=== PATIENT | male | born 1955 | race Caucasian/White ===

== ENCOUNTER → 2018-11-16 | Outpatient (CLI) | payer OTHER ==
[~2018-11-16] MED LIST: LISINOPRIL40 MG PO; NEURONTIN 300300 M1 PO; NORVASC5 MG PO; PRAVACHOL40 MG PO; TRAMADOL 50 MG50 MG PO; VENLAFAXINE HCL75 M1 PO; XANAX 0.5 MG0.5 MG PO
--- NOTE | ~2018-11-16 | PAINCON ---
[address] [address] PAIN MANAGEMENT CONSULTATION Name: ALBERTINA LEE [id number] Admission: 11/16/18 Attend Phys: Raegan Whelan MD Discharge: Date of : 55 Report #: [id number] THIS REPORT FOR: //name// CC: Noemy Whelan DATE OF SERVICE: 11/16/2018 CHIEF COMPLAINT: Neck, low back and hip pain. FOLLOWUP HISTORY: The patient is a 63-year-old gentleman who has been referred to the [facility] for pain management. He states that he has continued to have pain and discomfort in the neck, low back and left hip area. He suffered a stroke in 2009. He has had some limited mobility on the right side, generally favors his left side. The left arm is found to have some numbness and tingling at times. He has had some constant pain in his neck since being in the [place] in 1974. The patient states that he was on board ship. There are certain doors that are locked on the ship to keep it from taking on water. He states that he walked quickly through an area and hit his head at the top of the door. He has had some pain and some discomfort since that time. He has noted worsening of his pain in his neck since the weather has gotten cold and has been in the single digits. He has found tramadol 50 mg b.i.d. to be helpful. He rates his pain as a 3-4/10. He does continue to feel somewhat unsteady on his feet. ALLERGIES: No known drug allergies. CURRENT MEDICATIONS: Xanax 0.5 mg, Norvasc 5 mg, Neurontin 300 mg, Zestril 40 mg, Pravachol 40 mg, Ultram 50 mg b.i.d., venlafaxine 75 mg. PAST MEDICAL HISTORY: 1. Chronic neck, back and leg history. 2. Hemorrhagic stroke, CVA. 3. Right side dominant hemiparesis. 4. Degenerative disc disease. 5. Hypertension. 6. Hyperlipidemia. 7. Anxiety. 8. Major depressive disorder, single episode, mild degree. PAST SURGICAL HISTORY: None. SOCIAL HISTORY: He works in sales, is a customs broker. He is working at this juncture. REVIEW OF SYSTEMS: Fatigue and weakness. Wears glasses, hearing loss. Shortness of breath with walking. Heat and cold intolerance. Joint pain, [place] [address] PAIN MANAGEMENT CONSULTATION Name: ALBERTINA LEE Room: [facility]#: [id number] Admission: 11/16/18 Attend Phys: Raegan Whelan MD Discharge: Date of : 55 Report #: [id number] stiffness and swelling, weakness of muscles and joints, back pain, difficulty walking. Rash/itching, numbness and tingling sensation. Stroke, head injury, nervousness, depression, easy bruising. LABORATORY DATA: No new laboratory values are available at the time of our interview. PAIN CLINIC ASSESSMENT/PQRS: 1. The patient is not being treated for osteoarthritis or rheumatoid arthritis. 2. Height 6 feet, weight 210 pounds, BMI is 28.5. 3. Vital signs: Blood pressure 147/92, heart rate 75, respiratory rate 16, room air saturation 94%, temperature 97.6. 4. Pain intensity: 3-4/10. 5. Fall history: The patient has not fallen in the last 3 months. 6. Blood thinner: The patient is not on a blood thinning medication. 7. Hypertension: The patient is being treated for hypertension. 8. Opioids greater than 6 weeks: The patient is receiving tramadol through his primary physician. 9. Risk assessment tool: Low for opioid use. 10. Functional assessment tool: 70. 11. Recreational drug use: The patient denies use of recreational drugs. 12. Tobacco: The patient does smoke cigarettes, smoking 1 pack a day, and smoked for the last 50 years. We discussed the benefits of smoking cessation. 13. Alcohol: The patient denies frequent use of alcoholic beverages. PHYSICAL EXAMINATION: GENERAL: The patient is a well-developed, well-nourished white male. He appears his stated age. He is alert and oriented x 3. His affect is appropriate. Speech is fluent. HEENT: Normocephalic, atraumatic. Extraocular eye muscles are intact. Sclerae are nonicteric. Mucous membranes are moist. NECK/MUSCULOSKELETAL: Without adenopathy. The patient does complain of some pain and discomfort in the neck area. The patient has some right-sided paresis. He does walk with a gait consistent with post-stroke condition. He is not using cane. He has some spasticity in the right arm. His opens his hands and there is some difficulty completely opening his hand on the right side. Some rigidity in the area of the shoulder down the elbow. Complains of pain and discomfort in the left hip and low back area. HEART: Regular rate. LUNGS: Clear to auscultation. ABDOMEN: Nontender. Bowel sounds present. EXTREMITIES: Weakness noted in the right lower extremity 4+/5, left lower extremity 5/5. IMPRESSION: 1. Chronic pain in the neck, low back area and left leg. [address] [place] [address] PAIN MANAGEMENT CONSULTATION Name: ALBERTINA LEE [place] Room: [facility]#: [id number] Admission: 11/16/18 Attend Phys: Raegan Whelan MD Discharge: Date of : 55 Report #: [id number] 2. CVA/stroke. 3. Right side dominant hemiparesis. 4. Degenerative disc disease. 5. Hypertension. 6. Hyperlipidemia. 7. Anxiety. 8. Major depressive disorder, single episode, mild degree. RECOMMENDATIONS: We discussed treatment options with the patient. The patient feels that the tramadol medication is helpful. He feels that an additional increase in this medication might would make things quite a bit more beneficial. He continues to smoke cigarettes. We discussed the benefits of smoking cessation. We will increase the patient's tramadol from 50 mg p.o. b.i.d. to 50 mg q.i.d. in hopes that this will provide him more pain control and benefit. This should not affect his balance or mentation. The patient will try the medication at 1 tablet p.o. q.i.d. A script for the medication has been written. He will call us if he has any concerns. We would like to thank you for letting us participate in his care. We hope he continues to improve. By: [id number]. Bin Whelan MD /nt
== END ==
LOC: M.PC 12:10
DX: M54.2 Cervicalgia (principal); M54.5 Low back pain; M25.552 Pain in left hip; E78.5 Hyperlipidemia, unspecified; I10 Essential (primary) hypertension; F32.0 Major depressive disorder, single episode, mild; F41.9 Anxiety disorder, unspecified; Z79.899 Other long term (current) drug therapy; Z86.73 Personal history of transient ischemic attack (TIA), and cerebral infarction without residual deficits